=== PATIENT | female | born 1960 | race Caucasian/White ===

== ENCOUNTER 2017-07-02 20:43 | Inpatient (IN) | payer OTHER ==
[~2017-07-02] VITALS: Ht 172.7 cm; Wt 207.0 kg
[~2017-07-02 20:43] MED LIST: ACID CONTROL20 MG PO; ADVAIR 250/501 DISK IH; ADVAIR 500/501 DISK IH; AMOX TR-K CLV1 EAC4 PO; ASPIRIN81 M2 PO; AUGMENTIN875 MG PO; Aspirin E.C. PO; CLINDAMYCIN HC300 MG PO; ERGOCALCIF50000 UNIT PO; Effient PO; FLAGYL500 MG PO; FUROSEMIDE40 MG PO; HYZAAR 100-11 TABLET PO; K-DUR; K-DUR10 MEQ PO; KLOR-CON M2020 MEQ PO; LANTUS 10100 UNITS/ SC; LASIX40 MG PO; LASIX80 MG PO; LISINOPRIL20 MG PO; LYRICA150 MG PO; METFORMIN HCL1000 MG PO; MONDOXYNE NL100 MG PO; NOVOLOG 10100 UNITS/ SC; NOVOLOG 10100 UNITS/ SQ; Norvasc PO; OMEPRAZOLE40 M1 PO; OXAYDO5 MG PO; OXYCODONE-ACET1 EACH PO; PLAVIX75 MG PO; PREDNISONE10 MG PO; PREDNISONE20 MG PO; PROAIR HFA8.5 GM IH; PROVENTIL,2.5 MG/3 M IH; Proventil,Ventolin H IH; SIMVASTATIN10 MG PO; SINGULAIR10 MG PO; TRAMADOL HCL50 MG PO; ULTRAM50 MG PO; VANCO-0.9%750 MG/250 IV; VENTOLIN HFA18 GM IH; VITAMIN B12-FO1 EACH PO; ZESTRIL,PRINIV2.5 MG PO; ZOCOR40 MG PO
[2017-07-02 21:29] LABS: HEMATOCRIT 42.7 % (36.0-46.0); HEMOGLOBIN 13.1 G/DL (11.9-15.5); MCH 28.7 PG (29.0-34.0); MCHC 30.7 G/DL (30.0-36.0); MCV 93.6 FL (83-99); PLATELET COUNT 274 K/uL (156-360); RBC DIS.WIDTH-CV 13.8 % (11.8-14.6); RBC DIS.WIDTH-SD 47.2 % (39-53); RED BLOOD COUNT 4.56 M/uL (3.80-5.20); WHITE BLOOD COUNT 9.9 K/uL (4.1-10.2)
[2017-07-02 21:42] LABS: ALBUMIN 3.4 g/dL (3.2-4.8); CHLORIDE 96 mEq/L (99-109); POTASSIUM 4.7 mEq/L (3.7-5.4); SODIUM 135 mEq/L (136-147)
[2017-07-02 21:46] LABS: GLUCOSE 297 mg/dL (70-99); TOTAL BILIRUBIN 0.7 mg/dL (0.0-1.0); TOTAL PROTEIN 7.4 g/dL (6.4-8.3)
[2017-07-02 21:48] LABS: ALKALINE PHOSPHATASE 100 IU/L (3-129); CREATININE 0.8 mg/dL (0.6-1.3); GFR ESTIMATE (CALCULATED) > 59 mL/min/
[2017-07-02 21:49] LABS: UREA NITROGEN (BUN) 17 mg/dL (9-23)
[2017-07-02 21:50] LABS: AST (GOT) 14 IU/L (2-34)
[2017-07-02 21:51] LABS: ALT (GPT) 23 IU/L (3-49)
[2017-07-02 21:55] LABS: TROP-I INTERPRETATION NEGATIVE; TROPONIN-I < 0.01 ng/mL (0.0-0.30)
[2017-07-02 22:29] LABS: CARBON DIOXIDE (BICARBONATE) 37.6 MEQ/L (20-31)
[2017-07-03 04:43] VITALS: BP 121/69
[2017-07-03 06:47] LABS: TROP-I INTERPRETATION NEGATIVE; TROPONIN-I 0.02 ng/mL (0.0-0.30)
[2017-07-03 08:21] VITALS: BP 104/51
[2017-07-03 09:49] LABS: BICARBONATE 34.8 mEq/L (22-26); CARBOXY HGB 4.6 % (0-5); COMMENTS - BLOOD GASES +C; DEVICE NC; METHEMOGLOBIN 1.1 % (0-1.5); O2 FLOW 3 L/MIN; PCO2 66 mm Hg (35-45); PO2 64 mm Hg (80-100); SITE RR +A; TOTAL RESP RATE 20 resp/min; pH 7.33 (7.35-7.45)
[2017-07-03 11:37] VITALS: BP 139/84
[2017-07-03 12:52] LABS: TROP-I INTERPRETATION NEGATIVE; TROPONIN-I < 0.01 ng/mL (0.0-0.30)
[2017-07-03] MEDS ORDERED: HUMALOG100 UNIT/1 SC (15:20)
[2017-07-03] MEDS ORDERED: LOSARTAN-HCTZ1 EAC2 PO (15:20)
[2017-07-03] MEDS ORDERED: BASAGLAR K100 UNIT/1 SC (15:20)
[2017-07-03] MEDS ORDERED: SIMVASTATIN40 MG PO (15:21)
[2017-07-03] MEDS ORDERED: MONTELUKAST SOD10 MG PO (15:21)
[2017-07-03] MEDS ORDERED: GLUCOPHAGE500 MG PO (15:22)
[2017-07-03] MEDS ORDERED: DECARA50000 UNIT PO (15:26)
[2017-07-03] MEDS ORDERED: LYRICA150 MG PO (15:27)
[2017-07-03] MEDS ORDERED: NITROGLYCERIN0.4 MG SL (15:28)
[2017-07-03 17:11] VITALS: BP 152/73
[2017-07-03 17:18] LABS: TROP-I INTERPRETATION NEGATIVE; TROPONIN-I 0.02 ng/mL (0.0-0.30)
[2017-07-03 20:03] VITALS: BP 140/73
[2017-07-04 00:02] VITALS: BP 140/63
[2017-07-04 05:54] LABS: HEMATOCRIT 41.5 % (36.0-46.0); HEMOGLOBIN 12.5 G/DL (11.9-15.5); MCH 28.8 PG (29.0-34.0); MCHC 30.1 G/DL (30.0-36.0); MCV 95.6 FL (83-99); PLATELET COUNT 270 K/uL (156-360); RBC DIS.WIDTH-CV 13.8 % (11.8-14.6); RED BLOOD COUNT 4.34 M/uL (3.80-5.20); WHITE BLOOD COUNT 10.5 K/uL (4.1-10.2)
[2017-07-04 06:39] LABS: CHLORIDE 94 MEQ/L (99-109); GFR ESTIMATE (CALCULATED) > 59 mL/min/; POTASSIUM 4.8 MEQ/L (3.7-5.4); SODIUM 133 MEQ/L (136-147); UREA NITROGEN (BUN) 23 mg/dL (9-23)
[2017-07-04 06:41] LABS: GLUCOSE 501 mg/dL (70-99)
[2017-07-04 07:27] VITALS: BP 167/79
[2017-07-04 11:29] VITALS: BP 139/72
[2017-07-04 13:09] LABS: GLUCOSE 509 mg/dL (70-99)
[2017-07-04 15:58] VITALS: BP 148/83
[2017-07-04 15:58] LABS: BASE EXCESS 8.4 mEq/L (-3 to +3); BICARBONATE 36.4 mEq/L (22-26); CARBOXY HGB 2.6 % (0-5); COMMENTS - BLOOD GASES A+C+; DEVICE NC; METHEMOGLOBIN 0.8 % (0-1.5); O2 FLOW 4 L/MIN; PCO2 66 mm Hg (35-45); PO2 61 mm Hg (80-100); SITE RR; pH 7.35 (7.35-7.45)
[2017-07-04 19:40] VITALS: BP 132/75
[2017-07-05] VITALS (14 sets, daily range): BP systolic 110–161; BP diastolic 56–81
[2017-07-05 11:52] LABS: CHLORIDE 91 MEQ/L (99-109); CREATININE 1.3 MG/DL (0.6-1.3); GFR ESTIMATE (CALCULATED) 45 mL/min/; GLUCOSE 376 mg/dL (70-99); POTASSIUM 4.8 MEQ/L (3.7-5.4); SODIUM 135 MEQ/L (136-147); UREA NITROGEN (BUN) 35 mg/dL (9-23)
[2017-07-05 18:04] LABS: GLUCOSE 475 mg/dL (70-99)
[2017-07-06] VITALS (20 sets, daily range): BP systolic 115–180; BP diastolic 72–112
[2017-07-06 05:35] LABS: CHLORIDE 90 MEQ/L (99-109); GFR ESTIMATE (CALCULATED) > 59 mL/min/; GLUCOSE 375 mg/dL (70-99); MAGNESIUM 2.2 mg/dl (1.3-2.7); POTASSIUM 4.9 MEQ/L (3.7-5.4); SODIUM 134 MEQ/L (136-147); UREA NITROGEN (BUN) 38 mg/dL (9-23)
[2017-07-06 13:18] LABS: HEMOGLOBIN A1c (GLYCOHEMOGLOB) 11.4 % (Below 5.7)
[2017-07-07 04:05] VITALS: BP 131/65
[2017-07-07 07:35] LABS: HEMATOCRIT 44.3 % (36.0-46.0); HEMOGLOBIN 13.4 G/DL (11.9-15.5); MCH 28.1 PG (29.0-34.0); MCHC 30.2 G/DL (30.0-36.0); MCV 92.9 FL (83-99); NRBC (%) 0.1 /100 WBC (0-0); PLATELET COUNT 329 K/uL (156-360); RBC DIS.WIDTH-CV 13.3 % (11.8-14.6); RBC DIS.WIDTH-SD 45.9 % (39-53); RED BLOOD COUNT 4.77 M/uL (3.80-5.20); WHITE BLOOD COUNT 13.6 K/uL (4.1-10.2)
[2017-07-07 08:04] LABS: CARBON DIOXIDE (BICARBONATE) > 40.0 MEQ/L (20-31); CHLORIDE 88 MEQ/L (99-109); CREATININE 0.9 MG/DL (0.6-1.3); GFR ESTIMATE (CALCULATED) > 59 mL/min/; GLUCOSE 268 mg/dL (70-99); SODIUM 137 MEQ/L (136-147); UREA NITROGEN (BUN) 37 mg/dL (9-23)
[2017-07-07 08:11] VITALS: BP 130/76
[2017-07-07 16:10] VITALS: BP 150/80
[2017-07-07 23:24] VITALS: BP 132/74
[2017-07-08 05:56] LABS: BASOPHIL (%) 0.1 % (0-1); EOSINOPHIL (%) 0.1 % (0-5); HEMATOCRIT 44.7 % (36.0-46.0); HEMOGLOBIN 13.3 G/DL (11.9-15.5); IMMATURE GRANULOCYTE (%) 0.5 % (0.0-0.7); LYMPHOCYTE (%) 16.6 % (15-42); LYMPHOCYTE COUNT 1.8 K/uL (1.0-2.8); MCH 27.5 PG (29.0-34.0); MCHC 29.8 G/DL (30.0-36.0); MCV 92.4 FL (83-99); MONOCYTE (%) 5.2 % (3-12); MONOCYTE COUNT 0.6 K/uL (0-0.8); NEUTROPHIL (%) 77.5 % (45-76); NEUTROPHIL COUNT 8.3 K/uL (1.8-6.4); PLATELET COUNT 299 K/uL (156-360); RBC DIS.WIDTH-CV 13.2 % (11.8-14.6); RBC DIS.WIDTH-SD 44.6 % (39-53); RED BLOOD COUNT 4.84 M/uL (3.80-5.20); WHITE BLOOD COUNT 10.6 K/uL (4.1-10.2)
[2017-07-08 06:30] LABS: CHLORIDE 88 MEQ/L (99-109); CREATININE 0.8 MG/DL (0.6-1.3); GFR ESTIMATE (CALCULATED) > 59 mL/min/; GLUCOSE 241 mg/dL (70-99); SODIUM 134 MEQ/L (136-147); UREA NITROGEN (BUN) 35 mg/dL (9-23)
[2017-07-08 06:32] LABS: POTASSIUM 6.1 MEQ/L (3.7-5.4)
[2017-07-08 07:49] VITALS: BP 137/63
[2017-07-08 13:43] LABS: CHLORIDE 86 MEQ/L (99-109); CREATININE 0.8 MG/DL (0.6-1.3); GFR ESTIMATE (CALCULATED) > 59 mL/min/; GLUCOSE 295 mg/dL (70-99); SODIUM 136 MEQ/L (136-147); UREA NITROGEN (BUN) 35 mg/dL (9-23)
[2017-07-08 13:47] LABS: CARBON DIOXIDE (BICARBONATE) > 40.0 MEQ/L (20-31); POTASSIUM 4.4 MEQ/L (3.7-5.4)
[2017-07-08 16:37] VITALS: BP 126/68
[2017-07-08 20:46] VITALS: BP 129/72
[2017-07-09 01:44] VITALS: BP 134/68
[2017-07-09 04:22] VITALS: BP 130/72
[2017-07-09 07:47] LABS: CARBON DIOXIDE (BICARBONATE) > 40.0 MEQ/L (20-31); CHLORIDE 88 MEQ/L (99-109); CREATININE 0.9 MG/DL (0.6-1.3); GFR ESTIMATE (CALCULATED) > 59 mL/min/; GLUCOSE 126 mg/dL (70-99); POTASSIUM 3.8 MEQ/L (3.7-5.4); SODIUM 137 MEQ/L (136-147); UREA NITROGEN (BUN) 37 mg/dL (9-23)
[2017-07-09 11:43] VITALS: BP 121/70
[2017-07-09 18:08] VITALS: BP 128/76
[2017-07-09 20:05] VITALS: BP 142/79
[2017-07-10 02:15] VITALS: BP 156/80
[2017-07-10 06:38] VITALS: BP 130/72
[2017-07-10 06:42] LABS: CHLORIDE 88 MEQ/L (99-109); CREATININE 0.8 MG/DL (0.6-1.3); GFR ESTIMATE (CALCULATED) > 59 mL/min/; GLUCOSE 118 mg/dL (70-99); POTASSIUM 3.7 MEQ/L (3.7-5.4); SODIUM 136 MEQ/L (136-147); UREA NITROGEN (BUN) 37 mg/dL (9-23)
[2017-07-10 08:06] VITALS: BP 134/69
[2017-07-10] MEDS ORDERED: FUROSEMIDE40 MG PO (09:02)
[2017-07-10] MEDS ORDERED: ASPIRIN81 M2 PO (09:02)
[2017-07-10] MEDS ORDERED: DULERA 100 MCG/13 GM IH (09:02)
[2017-07-10] MEDS ORDERED: DOXYCYCLINE HY100 M3 PO (09:02)
[2017-07-10] MEDS ORDERED: AMOX TR-K CLV1 EAC4 PO (09:02)
[2017-07-10] MEDS ORDERED: HYDROCHLOROTHIA25 MG PO (09:02)
[2017-07-10] MEDS ORDERED: SPIRIVA RESPIMAT4 GM IH (09:02)
[2017-07-10] MEDS ORDERED: PREDNISONE10 MG PO (09:02)
[2017-07-10 10:46] VITALS: BP 123/60
== END 2017-07-10 13:05 | disposition home or self-care (01) | DRG 602 ==
LOC: EME → EDBD 20:43 → EME 20:43 → EDOF 07-03 02:49 → 4EAST 07-03 02:49 → 5SOUTH 07-03 02:49 → ENRESERV 07-03 02:56 → 5SOUTH 07-03 04:31 → ENRESERV 07-04 15:04 → 4EAST 07-04 17:25 → ENRESERV 07-05 17:52 → 4EAST 07-05 17:52 → ENRESERV 07-05 19:32 → 4WEST 07-05 20:20 → ENRESERV 07-06 16:46 → 3EAST 07-06 19:48
PROVIDERS: Emergency Medicine Emergency Medical Services; Hospitalist; Internal Medicine; Internal Medicine Critical Care Medicine; Nurse Practitioner Family; Physician Assistant
PROC: 5A09357 Assistance with Respiratory Ventilation, Less than 24 Consecutive Hours, Continuous Positive Airway Pressure (ICD-10-PCS; principal; 2017-07-03)
DX: L03.116 Cellulitis of left lower limb (principal); J96.21 Acute and chronic respiratory failure with hypoxia; I50.31 Acute diastolic (congestive) heart failure; J44.1 Chronic obstructive pulmonary disease with (acute) exacerbation; L97.921 Non-pressure chronic ulcer of unspecified part of left lower leg limited to breakdown of skin; Z68.45 Body mass index [BMI] 70 or greater, adult; A28.0 Pasteurellosis; J96.22 Acute and chronic respiratory failure with hypercapnia; E66.2 Morbid (severe) obesity with alveolar hypoventilation; L97.911 Non-pressure chronic ulcer of unspecified part of right lower leg limited to breakdown of skin; E87.3 Alkalosis; L03.115 Cellulitis of right lower limb; R79.1 Abnormal coagulation profile; I89.0 Lymphedema, not elsewhere classified; E78.5 Hyperlipidemia, unspecified; J20.9 Acute bronchitis, unspecified; J44.0 Chronic obstructive pulmonary disease with (acute) lower respiratory infection; K21.9 Gastro-esophageal reflux disease without esophagitis; I11.0 Hypertensive heart disease with heart failure; E11.42 Type 2 diabetes mellitus with diabetic polyneuropathy; I25.10 Atherosclerotic heart disease of native coronary artery without angina pectoris; E11.622 Type 2 diabetes mellitus with other skin ulcer; M54.9 Dorsalgia, unspecified; G89.29 Other chronic pain; E87.5 Hyperkalemia; T50.1X5A Adverse effect of loop [high-ceiling] diuretics, initial encounter; Y92.239 Unspecified place in hospital as the place of occurrence of the external cause; T38.0X5A Adverse effect of glucocorticoids and synthetic analogues, initial encounter; L89.622 Pressure ulcer of left heel, stage 2; L89.612 Pressure ulcer of right heel, stage 2; E11.65 Type 2 diabetes mellitus with hyperglycemia; Z79.899 Other long term (current) drug therapy; Z74.01 Bed confinement status; Z90.49 Acquired absence of other specified parts of digestive tract; Z79.82 Long term (current) use of aspirin; Z95.5 Presence of coronary angioplasty implant and graft; Z87.891 Personal history of nicotine dependence; Z79.4 Long term (current) use of insulin
CPT/HCPCS: 36600; 71045; 71046; 78582; 80048; 80048 91; 80053; 82010; 82803; 82948; 83036; 83605; 83735; 83880; 84443; 84484; 84999; 85025; 85027; 85379; 87040; 87070; 87075; 87076; 87077; 87147; 87185; 87186; 87205; 87641; 93005; 93306; 93971; 94640; 94640 76; 94660; 94760; 94799; 97530 GP; 99202; 99281; 99285; A6212; A9540; A9567; J1650; J1815; J1940; J2543; J2920; J2930; J7050; J7512

== ENCOUNTER 2017-08-03 22:06 | Inpatient (IN) | payer OTHER ==
[~2017-08-03] VITALS: Ht 172.7 cm; Wt 172.0 kg
[~2017-08-03 22:06] MED LIST changes: +BASAGLAR K100 UNIT/1 SC; +DECARA50000 UNIT PO; +DOXYCYCLINE HY100 M3 PO; +DULERA 100 MCG/13 GM IH; +GLUCOPHAGE500 MG PO; +HUMALOG100 UNIT/1 SC; +HYDROCHLOROTHIA25 MG PO; +LOSARTAN-HCTZ1 EAC2 PO; +MONTELUKAST SOD10 MG PO; +NITROGLYCERIN0.4 MG SL; +SIMVASTATIN40 MG PO; +SPIRIVA RESPIMAT4 GM IH
[2017-08-03 23:26] LABS: HEMATOCRIT 38.2 % (36.0-46.0); HEMOGLOBIN 11.6 G/DL (11.9-15.5); MCH 29.4 PG (29.0-34.0); MCHC 30.4 G/DL (30.0-36.0); NRBC (%) 0.6 /100 WBC (0-0); PLATELET COUNT 235 K/uL (156-360); RBC DIS.WIDTH-CV 15.1 % (11.8-14.6); RED BLOOD COUNT 3.94 M/uL (3.80-5.20); WHITE BLOOD COUNT 9.4 K/uL (4.1-10.2)
[2017-08-03 23:31] LABS: ALBUMIN 3.3 g/dL (3.2-4.8); CHLORIDE 94 mEq/L (99-109); POTASSIUM 4.4 mEq/L (3.7-5.4); SODIUM 141 mEq/L (136-147)
[2017-08-03 23:33] LABS: GLUCOSE 158 mg/dL (70-99); TOTAL PROTEIN 7.4 g/dL (6.4-8.3)
[2017-08-03 23:35] LABS: TOTAL BILIRUBIN 0.7 mg/dL (0.0-1.0)
[2017-08-03 23:37] LABS: ALKALINE PHOSPHATASE 96 IU/L (3-129); CREATININE 1.3 mg/dL (0.6-1.3); GFR ESTIMATE (CALCULATED) 45 mL/min/
[2017-08-03 23:38] LABS: UREA NITROGEN (BUN) 33 mg/dL (9-23)
[2017-08-03 23:39] LABS: AST (GOT) 17 IU/L (2-34)
[2017-08-03 23:40] LABS: ALT (GPT) 27 IU/L (3-49)
[2017-08-03 23:46] LABS: TROP-I INTERPRETATION NEGATIVE; TROPONIN-I 0.01 ng/mL (0.0-0.30)
[2017-08-04] MEDS ORDERED: CIPRO500 MG PO ×2 (00:11→08:09)
[2017-08-04] MEDS ORDERED: BUMEX2 MG PO (00:12)
[2017-08-04] MEDS ORDERED: IBU800 MG PO (00:12)
[2017-08-04 01:16] LABS: SITE LB
[2017-08-04 01:17] LABS: DEVICE NC; MECHANICAL RATE 16 resp/min; O2 FLOW 1 L/MIN; O2 SATURATION (CALCULATED) 94.5 % (95-99); PCO2 93 mm Hg (35-45); PO2 68 mm Hg (80-100); pH 7.28 (7.35-7.45)
[2017-08-04 01:18] LABS: BASE EXCESS 13.5 mEq/L (-3 to +3); BICARBONATE 43.7 mEq/L (22-26); CARBOXY HGB 5.8 % (0-5); METHEMOGLOBIN 0.9 % (0-1.5)
[2017-08-04 01:33] LABS: C-REACTIVE PROTEIN 97.7 MG/L (0-10)
[2017-08-04 03:10] LABS: O2 SATURATION (CALCULATED) 86.1 % (95-99); PCO2 91 mm Hg (35-45); PO2 49 mm Hg (80-100); pH 7.29 (7.35-7.45)
[2017-08-04 03:11] LABS: BASE EXCESS 13.9 mEq/L (-3 to +3); BICARBONATE 43.8 mEq/L (22-26); CARBOXY HGB 5.4 % (0-5); METHEMOGLOBIN 0.9 % (0-1.5); SITE LB
[2017-08-04 03:22] LABS: DEVICE NCPAP; O2 FLOW 2 L/MIN
[2017-08-04 03:23] LABS: CONTINUOUS POS AIRWAY PRESSURE 19 cm H2O
[2017-08-04 04:53] LABS: PCO2 78 mm Hg (35-45); PO2 84 mm Hg (80-100); pH 7.34 (7.35-7.45)
[2017-08-04 04:54] LABS: BASE EXCESS 13.4 mEq/L (-3 to +3); BICARBONATE 42.1 mEq/L (22-26); CARBOXY HGB 5.2 % (0-5); COMMENTS - BLOOD GASES C+; DEVICE VENT; FI02 30 %; MECHANICAL RATE 18 resp/min; METHEMOGLOBIN 1.3 % (0-1.5); O2 SATURATION (CALCULATED) 98 % (95-99); SITE LB; TOTAL RESP RATE 18 resp/min
[2017-08-04 04:55] LABS: MODE ACPS; PEEP 10 CM/H20; PRES. SUPPORT 20 CM/H2O
[2017-08-04] MEDS ORDERED: BASAGLAR K100 UNIT/1 SC (08:07)
[2017-08-04] MEDS ORDERED: HUMALOG100 UNIT/2 SC (08:09)
[2017-08-04] MEDS ORDERED: METOLAZONE5 MG PO (08:10)
[2017-08-04] MEDS ORDERED: BUMETANIDE2 MG PO (08:11)
[2017-08-04] MEDS ORDERED: MONTELUKAST SOD10 MG PO (08:11)
[2017-08-04] MEDS ORDERED: ERGOCALCIF50000 UNIT PO (08:11)
[2017-08-04] MEDS ORDERED: METFORMIN HCL1000 MG PO (08:12)
[2017-08-04] MEDS ORDERED: LO-DOSE ASPIRIN81 M1 PO (08:12)
[2017-08-04] MEDS ORDERED: HYDROCHLOROTHIA25 MG PO (08:12)
[2017-08-04] MEDS ORDERED: IBUPROFEN800 MG PO (08:12)
[2017-08-04] MEDS ORDERED: SIMVASTATIN40 MG PO (08:12)
[2017-08-04] MEDS ORDERED: TYLENOL REGULA325 MG PO (08:13)
[2017-08-04] MEDS ORDERED: FLONASE16 G1 BOTH NARES (08:13)
[2017-08-04] MEDS ORDERED: LYRICA150 MG PO (08:13)
[2017-08-04] MEDS ORDERED: ADVAIR 500/501 DISK IH (08:14)
[2017-08-04] MEDS ORDERED: VENTOLIN HFA18 GM IH (08:14)
[2017-08-04] MEDS ORDERED: NATURAL BALANCE15 M1 BOTH EYES (08:14)
[2017-08-04] MEDS ORDERED: OCEAN NASAL 0.645 ML BOTH NARES (08:14)
[2017-08-04 10:36] VITALS: BP 165/82
[2017-08-04 11:12] VITALS: BP 136/87
[2017-08-04 17:00] VITALS: BP 176/77
[2017-08-04 20:45] VITALS: BP 129/67
[2017-08-04 23:26] VITALS: BP 140/77
[2017-08-05 04:07] VITALS: BP 143/67
[2017-08-05 05:24] LABS: BASOPHIL (%) 0.1 % (0-1); EOSINOPHIL (%) 0 % (0-5); HEMOGLOBIN 10.7 G/DL (11.9-15.5); IMMATURE GRANULOCYTE (%) 0.7 % (0.0-0.7); LYMPHOCYTE COUNT 1.6 K/uL (1.0-2.8); MCH 28.8 PG (29.0-34.0); MCHC 30.6 G/DL (30.0-36.0); MCV 94.3 FL (83-99); MONOCYTE (%) 5.6 % (3-12); MONOCYTE COUNT 0.6 K/uL (0-0.8); NEUTROPHIL (%) 78.6 % (45-76); NEUTROPHIL COUNT 8.4 K/uL (1.8-6.4); NRBC (%) 0.3 /100 WBC (0-0); PLATELET COUNT 239 K/uL (156-360); RBC DIS.WIDTH-CV 14.9 % (11.8-14.6); RBC DIS.WIDTH-SD 50.2 % (39-53); RED BLOOD COUNT 3.71 M/uL (3.80-5.20); WHITE BLOOD COUNT 10.7 K/uL (4.1-10.2)
[2017-08-05 06:24] LABS: CHLORIDE 93 MEQ/L (99-109); GFR ESTIMATE (CALCULATED) > 59 mL/min/; POTASSIUM 4.8 MEQ/L (3.7-5.4); SODIUM 137 MEQ/L (136-147); UREA NITROGEN (BUN) 40 mg/dL (9-23)
[2017-08-05 06:51] LABS: GLUCOSE 433 mg/dL (70-99)
[2017-08-05 07:42] VITALS: BP 122/62
[2017-08-05 11:30] VITALS: BP 138/65
[2017-08-05 16:00] VITALS: BP 166/90
[2017-08-05 19:30] VITALS: BP 143/80
[2017-08-05 23:50] VITALS: BP 136/78
[2017-08-06 04:00] VITALS: BP 128/62
[2017-08-06 05:37] LABS: BASOPHIL (%) 0.1 % (0-1); EOSINOPHIL (%) 0 % (0-5); HEMATOCRIT 36.8 % (36.0-46.0); HEMOGLOBIN 10.6 G/DL (11.9-15.5); IMMATURE GRANULOCYTE (%) 0.7 % (0.0-0.7); LYMPHOCYTE COUNT 2.1 K/uL (1.0-2.8); MCH 27.6 PG (29.0-34.0); MCHC 28.8 G/DL (30.0-36.0); MCV 95.8 FL (83-99); MONOCYTE (%) 8.7 % (3-12); MONOCYTE COUNT 0.9 K/uL (0-0.8); NEUTROPHIL (%) 69.5 % (45-76); NEUTROPHIL COUNT 6.9 K/uL (1.8-6.4); NRBC (%) 0.2 /100 WBC (0-0); PLATELET COUNT 259 K/uL (156-360); RBC DIS.WIDTH-SD 51.6 % (39-53); RED BLOOD COUNT 3.84 M/uL (3.80-5.20); WHITE BLOOD COUNT 9.9 K/uL (4.1-10.2)
[2017-08-06 05:56] LABS: CHLORIDE 91 MEQ/L (99-109); CREATININE 1.1 MG/DL (0.6-1.3); GFR ESTIMATE (CALCULATED) 54 mL/min/; GLUCOSE 394 mg/dL (70-99); POTASSIUM 4.2 MEQ/L (3.7-5.4); SODIUM 138 MEQ/L (136-147); UREA NITROGEN (BUN) 44 mg/dL (9-23)
[2017-08-06 06:08] LABS: CARBON DIOXIDE (BICARBONATE) > 40.0 MEQ/L (20-31)
[2017-08-06 07:40] VITALS: BP 132/66
[2017-08-06 11:54] VITALS: BP 143/72
[2017-08-06 15:48] VITALS: BP 135/63
[2017-08-06 19:28] VITALS: BP 131/65
[2017-08-06 23:00] VITALS: BP 130/68
[2017-08-07 04:50] VITALS: BP 129/60
[2017-08-07 08:00] VITALS: BP 136/64
[2017-08-07 16:17] VITALS: BP 178/82
[2017-08-07 19:42] VITALS: BP 153/71
[2017-08-07 23:16] VITALS: BP 147/65
[2017-08-08 03:25] VITALS: BP 17/67
[2017-08-08 06:06] LABS: CHLORIDE 84 MEQ/L (99-109); CREATININE 0.7 MG/DL (0.6-1.3); GFR ESTIMATE (CALCULATED) > 59 mL/min/; POTASSIUM 3.5 MEQ/L (3.7-5.4); SODIUM 141 MEQ/L (136-147); UREA NITROGEN (BUN) 46 mg/dL (9-23)
[2017-08-08 06:21] LABS: CARBON DIOXIDE (BICARBONATE) > 40.0 MEQ/L (20-31); GLUCOSE 186 mg/dL (70-99)
[2017-08-08 08:47] VITALS: BP 135/73
[2017-08-08 12:00] VITALS: BP 126/77
[2017-08-08 15:05] VITALS: BP 168/85
[2017-08-08 21:12] VITALS: BP 137/82
[2017-08-08 23:50] VITALS: BP 137/75
[2017-08-09 05:20] VITALS: BP 166/77
[2017-08-09 07:51] VITALS: BP 116/85
[2017-08-09 09:38] LABS: CHLORIDE 82 MEQ/L (99-109); CREATININE 0.8 MG/DL (0.6-1.3); GFR ESTIMATE (CALCULATED) > 59 mL/min/; GLUCOSE 144 mg/dL (70-99); POTASSIUM 3.5 MEQ/L (3.7-5.4); SODIUM 139 MEQ/L (136-147); UREA NITROGEN (BUN) 43 mg/dL (9-23)
[2017-08-09 09:39] LABS: CARBON DIOXIDE (BICARBONATE) > 40.0 MEQ/L (20-31)
[2017-08-09 11:34] LABS: COMMENTS - BLOOD GASES A+CD+; DEVICE NC; O2 FLOW 4 L/MIN; PCO2 66 mm Hg (35-45); PO2 51 mm Hg (80-100); SITE RR; pH 7.55 (7.35-7.45)
[2017-08-09 11:35] LABS: BICARBONATE 57.7 mEq/L (22-26); CARBOXY HGB 2.2 % (0-5); METHEMOGLOBIN 0.7 % (0-1.5)
[2017-08-09 12:12] VITALS: BP 116/71
[2017-08-09 17:07] VITALS: BP 126/67
[2017-08-09 20:28] VITALS: BP 113/60
[2017-08-10] VITALS (7 sets, daily range): BP systolic 121–139; BP diastolic 58–73
[2017-08-10 07:41] LABS: CHLORIDE 84 MEQ/L (99-109); CREATININE 0.8 MG/DL (0.6-1.3); GFR ESTIMATE (CALCULATED) > 59 mL/min/; POTASSIUM 3.6 MEQ/L (3.7-5.4); SODIUM 140 MEQ/L (136-147); UREA NITROGEN (BUN) 42 mg/dL (9-23)
[2017-08-10 07:42] LABS: GLUCOSE 64 mg/dL (70-99)
[2017-08-10 07:44] LABS: CARBON DIOXIDE (BICARBONATE) > 40.0 MEQ/L (20-31)
[2017-08-11 08:02] VITALS: BP 117/63
[2017-08-11 08:11] LABS: CHLORIDE 84 MEQ/L (99-109); CREATININE 0.9 MG/DL (0.6-1.3); GFR ESTIMATE (CALCULATED) > 59 mL/min/; POTASSIUM 3.5 MEQ/L (3.7-5.4); SODIUM 135 MEQ/L (136-147); UREA NITROGEN (BUN) 41 mg/dL (9-23)
[2017-08-11 08:12] LABS: GLUCOSE 214 mg/dL (70-99)
[2017-08-11 08:22] LABS: CARBON DIOXIDE (BICARBONATE) > 40.0 MEQ/L (20-31)
[2017-08-11 14:51] VITALS: BP 115/54
[2017-08-11 20:00] VITALS: BP 122/71
[2017-08-12] VITALS: BP 126/61
[2017-08-12 06:04] LABS: BASOPHIL (%) 0.3 % (0-1); EOSINOPHIL (%) 1.8 % (0-5); EOSINOPHIL COUNT 0.2 K/uL (0-0.3); HEMATOCRIT 40.1 % (36.0-46.0); HEMOGLOBIN 11.8 G/DL (11.9-15.5); IMMATURE GRANULOCYTE (%) 0.8 % (0.0-0.7); LYMPHOCYTE (%) 35.4 % (15-42); LYMPHOCYTE COUNT 4.3 K/uL (1.0-2.8); MCH 28.4 PG (29.0-34.0); MCHC 29.4 G/DL (30.0-36.0); MCV 96.6 FL (83-99); MONOCYTE COUNT 1.1 K/uL (0-0.8); NEUTROPHIL (%) 52.7 % (45-76); NEUTROPHIL COUNT 6.3 K/uL (1.8-6.4); PLATELET COUNT 298 K/uL (156-360); RBC DIS.WIDTH-CV 15.2 % (11.8-14.6); RBC DIS.WIDTH-SD 53.6 % (39-53); RED BLOOD COUNT 4.15 M/uL (3.80-5.20)
[2017-08-12 06:36] LABS: CHLORIDE 89 MEQ/L (99-109); CREATININE 0.8 MG/DL (0.6-1.3); GFR ESTIMATE (CALCULATED) > 59 mL/min/; GLUCOSE 177 mg/dL (70-99); POTASSIUM 3.6 MEQ/L (3.7-5.4); SODIUM 138 MEQ/L (136-147); UREA NITROGEN (BUN) 38 mg/dL (9-23)
[2017-08-12 07:00] VITALS: BP 143/76
[2017-08-12 07:03] LABS: CARBON DIOXIDE (BICARBONATE) > 40.0 MEQ/L (20-31)
[2017-08-12 15:15] VITALS: BP 131/81
[2017-08-12 16:34] LABS: BASE EXCESS 13.6 mEq/L (-3 to +3); BICARBONATE 42.2 mEq/L (22-26); CARBOXY HGB 2.3 % (0-5); COMMENTS - BLOOD GASES A+C+; METHEMOGLOBIN 1.2 % (0-1.5); O2 SATURATION (CALCULATED) 91.9 % (95-99); PCO2 73 mm Hg (35-45); PO2 69 mm Hg (80-100); SITE RR; pH 7.37 (7.35-7.45)
[2017-08-12 16:35] LABS: CONTINUOUS POS AIRWAY PRESSURE 20 cm H2O; DEVICE NCPAP; O2 FLOW 4 L/MIN; PRES. SUPPORT 25 CM/H2O; TOTAL RESP RATE 18 resp/min
[2017-08-12 23:06] VITALS: BP 157/74
[2017-08-13 06:38] LABS: BASOPHIL (%) 0.2 % (0-1); EOSINOPHIL (%) 1.5 % (0-5); EOSINOPHIL COUNT 0.2 K/uL (0-0.3); HEMOGLOBIN 11.5 G/DL (11.9-15.5); IMMATURE GRANULOCYTE (%) 0.7 % (0.0-0.7); LYMPHOCYTE COUNT 4.4 K/uL (1.0-2.8); MCH 28.3 PG (29.0-34.0); MCHC 29.5 G/DL (30.0-36.0); MCV 95.8 FL (83-99); MONOCYTE (%) 10.1 % (3-12); MONOCYTE COUNT 1.2 K/uL (0-0.8); NEUTROPHIL (%) 51.5 % (45-76); NEUTROPHIL COUNT 6.2 K/uL (1.8-6.4); PLATELET COUNT 290 K/uL (156-360); RBC DIS.WIDTH-CV 14.8 % (11.8-14.6); RBC DIS.WIDTH-SD 52.5 % (39-53); RED BLOOD COUNT 4.07 M/uL (3.80-5.20); WHITE BLOOD COUNT 12.1 K/uL (4.1-10.2)
[2017-08-13 07:07] LABS: ALKALINE PHOSPHATASE 73 IU/L (3-129); ALT (GPT) 19 IU/L (3-49); AST (GOT) 35 IU/L (2-34); CHLORIDE 93 MEQ/L (99-109); CREATININE 0.8 MG/DL (0.6-1.3); GFR ESTIMATE (CALCULATED) > 59 mL/min/; GLUCOSE 185 mg/dL (70-99); POTASSIUM 3.8 MEQ/L (3.7-5.4); SODIUM 139 MEQ/L (136-147); TOTAL BILIRUBIN 0.5 MG/DL (0.0-1.0); TOTAL PROTEIN 6.5 G/DL (6.4-8.3); UREA NITROGEN (BUN) 39 mg/dL (9-23)
[2017-08-13 07:40] VITALS: BP 106/71
[2017-08-13 11:41] VITALS: BP 95/62
[2017-08-13 16:00] VITALS: BP 128/67
[2017-08-13 19:13] VITALS: BP 134/7
[2017-08-13 22:48] VITALS: BP 168/79
[2017-08-14 02:24] VITALS: BP 124/59
[2017-08-14 06:57] LABS: HEMATOCRIT 38.3 % (36.0-46.0); HEMOGLOBIN 11.7 G/DL (11.9-15.5); MCH 28.7 PG (29.0-34.0); MCHC 30.5 G/DL (30.0-36.0); MCV 94.1 FL (83-99); PLATELET COUNT 273 K/uL (156-360); RBC DIS.WIDTH-CV 14.9 % (11.8-14.6); RBC DIS.WIDTH-SD 51.6 % (39-53); RED BLOOD COUNT 4.07 M/uL (3.80-5.20); WHITE BLOOD COUNT 11.3 K/uL (4.1-10.2)
[2017-08-14 07:22] LABS: CHLORIDE 94 MEQ/L (99-109); CREATININE 0.8 MG/DL (0.6-1.3); GFR ESTIMATE (CALCULATED) > 59 mL/min/; GLUCOSE 196 mg/dL (70-99); POTASSIUM 3.7 MEQ/L (3.7-5.4); SODIUM 139 MEQ/L (136-147); UREA NITROGEN (BUN) 45 mg/dL (9-23)
[2017-08-14 07:25] VITALS: BP 132/70
[2017-08-14 11:10] VITALS: BP 120/56
[2017-08-14 13:41] LABS: SITE RR
[2017-08-14 13:42] LABS: BASE EXCESS 9.4 mEq/L (-3 to +3); CARBOXY HGB 2.1 % (0-5); COMMENTS - BLOOD GASES A+C+; DEVICE NC; METHEMOGLOBIN 0.8 % (0-1.5); O2 FLOW 3 L/MIN; PCO2 64 mm Hg (35-45); PO2 73 mm Hg (80-100); TOTAL RESP RATE 20 resp/min; pH 7.37 (7.35-7.45)
[2017-08-14 15:25] VITALS: BP 114/72
[2017-08-14 19:31] VITALS: BP 129/68
[2017-08-14 23:00] VITALS: BP 141/67
[2017-08-15 06:45] VITALS: BP 140/78
[2017-08-15 07:07] LABS: HEMATOCRIT 37.4 % (36.0-46.0); HEMOGLOBIN 11.3 G/DL (11.9-15.5); MCH 28.5 PG (29.0-34.0); MCHC 30.2 G/DL (30.0-36.0); MCV 94.4 FL (83-99); PLATELET COUNT 273 K/uL (156-360); RBC DIS.WIDTH-CV 14.8 % (11.8-14.6); RBC DIS.WIDTH-SD 50.6 % (39-53); RED BLOOD COUNT 3.96 M/uL (3.80-5.20); WHITE BLOOD COUNT 11.7 K/uL (4.1-10.2)
[2017-08-15 07:32] LABS: CHLORIDE 95 MEQ/L (99-109); CREATININE 0.9 MG/DL (0.6-1.3); GFR ESTIMATE (CALCULATED) > 59 mL/min/; GLUCOSE 166 mg/dL (70-99); POTASSIUM 3.4 MEQ/L (3.7-5.4); SODIUM 140 MEQ/L (136-147); UREA NITROGEN (BUN) 44 mg/dL (9-23)
[2017-08-15] MEDS ORDERED: NOVOLOG 10100 UNITS/ SC (11:48)
[2017-08-15] MEDS ORDERED: KEFLEX500 MG PO (11:49)
[2017-08-15 15:19] VITALS: BP 139/82
[2017-08-15] MEDS ORDERED: K-DUR20 MEQ PO (15:28)
[2017-08-16 00:49] VITALS: BP 107/61
[2017-08-16 07:35] VITALS: BP 122/74
[2017-08-16] MEDS ORDERED: PREDNISONE10 MG PO (11:47)
[2017-08-16] MEDS ORDERED: HUMALOG100 UNIT/1 SC (14:31)
== END 2017-08-16 14:39 | disposition home or self-care (01) | DRG 871 ==
LOC: EME 22:06 → 4EAST 08-04 05:01 → EDOF 08-04 05:01 → ENRESERV 08-04 05:04 → 4EAST 08-04 09:48 → ENRESERV 08-10 11:04 → 5EAST 08-10 12:43
PROVIDERS: Emergency Medicine; Hospitalist; Internal Medicine; Internal Medicine Cardiovascular Disease; Physician Assistant
PROC: 5A09357 Assistance with Respiratory Ventilation, Less than 24 Consecutive Hours, Continuous Positive Airway Pressure (ICD-10-PCS; principal; 2017-08-04)
PROC: 0HBNXZZ Excision of Left Foot Skin, External Approach (ICD-10-PCS; 2017-08-06)
PROC: 0HBMXZZ Excision of Right Foot Skin, External Approach (ICD-10-PCS; 2017-08-06)
DX: A41.9 Sepsis, unspecified organism (principal); E11.628 Type 2 diabetes mellitus with other skin complications; L03.115 Cellulitis of right lower limb; L03.116 Cellulitis of left lower limb; B95.61 Methicillin susceptible Staphylococcus aureus infection as the cause of diseases classified elsewhere; J96.21 Acute and chronic respiratory failure with hypoxia; J96.22 Acute and chronic respiratory failure with hypercapnia; J18.9 Pneumonia, unspecified organism; J44.0 Chronic obstructive pulmonary disease with (acute) lower respiratory infection; J44.1 Chronic obstructive pulmonary disease with (acute) exacerbation; J45.901 Unspecified asthma with (acute) exacerbation; I11.0 Hypertensive heart disease with heart failure; I50.33 Acute on chronic diastolic (congestive) heart failure; I50.812 Chronic right heart failure; E87.4 Mixed disorder of acid-base balance; Z66 Do not resuscitate; E11.42 Type 2 diabetes mellitus with diabetic polyneuropathy; E11.51 Type 2 diabetes mellitus with diabetic peripheral angiopathy without gangrene; L89.610 Pressure ulcer of right heel, unstageable; E11.65 Type 2 diabetes mellitus with hyperglycemia; L97.929 Non-pressure chronic ulcer of unspecified part of left lower leg with unspecified severity; E66.2 Morbid (severe) obesity with alveolar hypoventilation; Z68.45 Body mass index [BMI] 70 or greater, adult; Z99.81 Dependence on supplemental oxygen; I89.0 Lymphedema, not elsewhere classified; E78.5 Hyperlipidemia, unspecified; I25.10 Atherosclerotic heart disease of native coronary artery without angina pectoris; B19.20 Unspecified viral hepatitis C without hepatic coma; E87.6 Hypokalemia; S91.302A Unspecified open wound, left foot, initial encounter; S80.812A Abrasion, left lower leg, initial encounter; G47.10 Hypersomnia, unspecified; I70.202 Unspecified atherosclerosis of native arteries of extremities, left leg; I87.2 Venous insufficiency (chronic) (peripheral); I87.8 Other specified disorders of veins; R32 Unspecified urinary incontinence; K21.9 Gastro-esophageal reflux disease without esophagitis; K44.9 Diaphragmatic hernia without obstruction or gangrene; K25.9 Gastric ulcer, unspecified as acute or chronic, without hemorrhage or perforation; R20.8 Other disturbances of skin sensation; G89.29 Other chronic pain; M51.26 Other intervertebral disc displacement, lumbar region; M51.86 Other intervertebral disc disorders, lumbar region; F31.9 Bipolar disorder, unspecified; Z74.01 Bed confinement status; Z79.4 Long term (current) use of insulin; Z86.14 Personal history of Methicillin resistant Staphylococcus aureus infection; Z87.891 Personal history of nicotine dependence; Z91.14 Patient's other noncompliance with medication regimen; Z91.19 Patient's noncompliance with other medical treatment and regimen; Z95.5 Presence of coronary angioplasty implant and graft
CPT/HCPCS: 36600; 71045; 73630; 80048; 80053; 82803; 82948; 83605; 83880; 84134; 84484; 85025; 85027; 85651; 86140; 87040; 87070; 87075; 87077; 87147; 87186; 87205; 93005; 93925; 93970; 94002; 94640; 94640 76; 94660; 94760; 94799; 97530 GO; 97530 GP; 99202; 99281; 99285; A6260; C1753; C1755; J0690; J0692; J1644; J1815; J1885; J1940; J2920; J2930; J3475; J3480; J7512

== ENCOUNTER → 2017-08-30 | Day surgery (SDC) | payer OTHER ==
[~2017-08-30] VITALS: Ht 172.7 cm; Wt 198.0 kg
[~2017-08-30] MED LIST changes: +BUMETANIDE2 MG PO; +BUMEX2 MG PO; +CIPRO500 MG PO; +FLONASE16 G1 BOTH NARES; +HUMALOG100 UNIT/2 SC; +IBU800 MG PO; +IBUPROFEN800 MG PO; +K-DUR20 MEQ PO; +KEFLEX500 MG PO; +LO-DOSE ASPIRIN81 M1 PO; +METOLAZONE5 MG PO; +NATURAL BALANCE15 M1 BOTH EYES; +OCEAN NASAL 0.645 ML BOTH NARES; +TYLENOL REGULA325 MG PO
== END | disposition home or self-care (01) ==
LOC: CATH 08:06
DX: I70.234 Atherosclerosis of native arteries of right leg with ulceration of heel and midfoot (principal); L97.411 Non-pressure chronic ulcer of right heel and midfoot limited to breakdown of skin; Z53.09 Procedure and treatment not carried out because of other contraindication
CPT/HCPCS: C1755